=== PATIENT | male | born 1985 | race Caucasian/White ===

== ENCOUNTER 2016-05-08 09:18 | Emergency (ER) | payer MEDICAID ==
[2016-05-08 09:30] VITALS: RESP 18
--- NOTE | 2016-05-08 09:31 | EDPHY ---
H & P Time Seen by Provider: 05/08/16 09:20 HPI/ROS: CHIEF COMPLAINT: Left rib pain HISTORY OF PRESENT ILLNESS: 30-year-old male presents to the emergency department by ambulance after he was skateboarding approximately 1 hour prior to arrival and fell landing on his left side. He complains of isolated pain to the left upper rib. Denies hitting his head or losing consciousness. Denies neck or back pain. He has pain with taking a big deep breath however he does not feel short of breath. He denies any abdominal pain. No vomiting. No pain in upper or lower extremities. Denies headache. REVIEW OF SYSTEMS: Constitutional: No fever, no chills. Eyes: No double or blurry vision. ENT: No sore throat. Respiratory: No cough, no shortness of breath. Cardiac: No chest pain. Gastrointestinal: No abdominal pain, vomiting or diarrhea. Genitourinary: No dysuria. Musculoskeletal: No neck or back pain. Skin: No rashes. Neurological: No headache. Past Medical/Surgical History: Negative Social History: Single Smoking Status: Current every day smoker Physical Exam: General Appearance: Alert, no distress. No visible signs of trauma to his head. He is mentating normally and answering questions appropriately. Eyes: Pupils equal and round. Extraocular motions are all intact. ENT: Mouth: Mucous membranes moist. No dental injury or malocclusion. Respiratory: No wheezing, rhonchi, or rales, lungs are clear to auscultation. Reproducible pain with palpation left anterior lateral chest wall in the midaxillary line. No palpable crepitus or other bony abnormality. No abrasion or puncture wound noted. Cardiovascular: Regular rate and rhythm. Gastrointestinal: Abdomen is soft and nontender, no masses, no rebound or guarding, bowel sounds normal. Specifically no tenderness with palpation in the left upper quadrant. No CVA tenderness bilaterally. Neurological: Alert and oriented x 3, cranial nerves II through XII grossly intact Skin: Warm and dry, no rashes. Musculoskeletal: Nontender to palpate along the cervical, thoracic or lumbar spine. Neck is supple. Extremities: Full range of motion and no peripheral edema. Psychiatric: Patient is oriented X 3, there is no agitation. Constitutional: Initial Vital Signs Temperature (C) 36.7 C 05/08/16 09:28 Heart Rate 102 H 05/08/16 09:28 Respiratory Rate 18 05/08/16 09:28 Blood Pressure 139/96 H 05/08/16 09:28 O2 Sat (%) 97 05/08/16 09:28 O2 Delivery Mode Room Air Allergies/Adverse Reactions: No Known Allergies Allergy (Unverified 06/13/15 11:54) Home Medications: Medication Instructions Recorded oxyCODONE/APAP 5/325 [Percocet 1 - 2 tab PO Q4-6PRN PRN #11 tab 05/08/16 5/325] Medical Decision Making - Diagnostics Imaging: Chest x-ray reveals no obvious rib fracture. Specifically no evidence of pneumothorax. The radiologist was questioning age indeterminate T12 compression fracture, however the patient has no pain with palpation along cervical, thoracic, or lumbar spine. This was reviewed by myself the PAC system as well as with radiologist, Dr. Ihsan Dyer. ED Course/Re-evaluation: 30-year-old male presents with left rib pain after fall off skateboard. Chest x -ray is unremarkable. No evidence of pneumothorax or obvious rib fracture. Patient was encouraged to take deep breaths. He was encouraged to return to the emergency department immediately if he felt short of breath or developed chest pain. He was given a prescription for Percocet for severe pain mostly to help him sleep. The radiologist was questioning possible T12 compression fracture of age indeterminate, however the patient has no pain with palpation along cervical, thoracic or lumbar spine. I do not think further imaging is necessary of the thoracic spine. Differential Diagnosis: Including but not limited to rib fracture, chest wall contusion, pneumothorax, intra-abdominal injury Departure - Departure Disposition: Home, Routine, Self-Care Clinical Impression: Chest wall contusion Qualifiers: Encounter type: initial encounter Laterality: left Qualifier Code: (S20.212A) Contusion of left front wall of thorax, initial encounter Condition: Good Instructions: Chest Wall Pain (ED), Contusion in Adults (ED) Additional Instructions: Deep breaths. Ibuprofen 600mg every 8 hours for pain as directed. Percocet for severe pain as directed. Return if you feel short of breath, if you develop pain in your chest, or if you feel worse in any way. Referrals: Jose Raul Nunez MD [Medical Doctor] - 2-3 days, if not improved (Primary care provider communications engineering technician) Prescriptions: oxyCODONE/APAP 5/325 [Percocet ] 1 - 2 tab PO Q4-6PRN PRN #11 tab PRN Reason: For Moderate To Severe Pain
--- NOTE | 2016-05-08 09:58 | DX ---
Chest, PA and Lateral History: Trauma. Left rib pain after fall from skateboard. Findings: No pneumothorax, pleural effusion, pulmonary contusion, mediastinal widening, or obvious ri b fracture is identified. The costovertebral alignment is symmetric and anatomic. On the lateral view there is a mild compression deformity of T11 that is of unknown age. There is no obvious paraspinal stripe widening. Impression: 1. No left rib fracture identified. 2. Minor T11 compression of unknown age. Correlation with the site of symptoms is suggested. If there are any old outside x-rays, we would be happy to review them to assess for interval change. Results called to Gladys Rivera at 10am. .
[2016-05-08 10:28] VITALS: BP 133/93; PULSE 76; TEMP 98.6; O2SAT 93
== END 2016-05-08 10:28 | disposition home or self-care (01) ==
LOC: EDUNIT#
DX: S20.212A Contusion of left front wall of thorax, initial encounter (principal); F17.200 Nicotine dependence, unspecified, uncomplicated; V00.131A Fall from skateboard, initial encounter; Y99.8 Other external cause status; Y93.51 Activity, roller skating (inline) and skateboarding

== ENCOUNTER 2017-06-07 10:12 | Emergency (ER) | payer MEDICAID ==
[2017-06-07] MEDS ORDERED: PERMETHRIN 5% 60 GM CREAM TP ONE (12:23)
--- NOTE | 2017-06-07 12:25 | EDPHY ---
H & P Smoking Status: Current every day smoker Time Seen by Provider: 06/07/17 11:36 HPI/ROS: CHIEF COMPLAINT: "fleas" HISTORY OF PRESENT ILLNESS: 31-year-old homeless male presents to the emergency department for medical clearance for usp. He is complaining of "fleas"all over his body. He states that has been going on for quite some time. He has tried observed as extremely itchy. He denies pain. Denies fevers or chills. No treatment. ROS: Denies pain, fever, chills, chest pain, difficulty breathing, URI symptoms. (Gladys Gould) Past Medical/Surgical History: Asthma, polysubstance abuse, right testicle removed (Gladys Gould) Social History: Homeless (Gladys Gould) Physical Exam: The patient is in no apparent distress. He has dreadlocks and a full ortiz. No obvious nits or eggs in his hair or ortiz but although this is difficult to tell. The patient has diffuse excoriated ruvalcaba on his chest, abdomen and back especially. There is no signs of infection. No evidence of retained foreign bodies. Patient is in no respiratory distress. Excoriated ruvalcaba are not noted to his face. (Gladys Gould) Constitutional: Initial Vital Signs Temperature (C) 36 C 06/07/17 10:15 Heart Rate 82 06/07/17 10:15 Respiratory Rate 16 06/07/17 10:15 Blood Pressure 142/78 H 06/07/17 10:15 O2 Sat (%) 94 06/07/17 10:15 O2 Delivery Mode Room Air Allergies/Adverse Reactions: No Known Allergies Allergy (Unverified 06/13/15 11:54) Home Medications: Medication Instructions Recorded NK [No Known Home Meds] 06/07/17 MDM/Departure - MDM Medications Given: Discontinued Medications Permethrin (Elimite 5%) 1 vincent TP EDNOW ONE Stop: 06/07/17 12:24 Last Admin: 06/07/17 13:20 Dose: 1 tub ED Course/Re-evaluation: 31-year-old male presents with very pruritic rash. He will be treated for possible scabies. He was given permethrin cream to apply head to toe and wash off an 8-14 hr. The patient was encouraged to shave his hair and ortiz off as this may prevent recontamination. Patient refused. He was discharged with medication and has been medically cleared for usp. ( Gladys Gould) I did not see this patient while he was in the emergency department. However his care was discussed with the PA while the patient was in the department. Agree with treatment plan and management (Ean Moran) - Depart Disposition: Home, Routine, Self-Care Clinical Impression: Scabies Condition: Good Instructions: Scabies (ED) Additional Instructions: Permethrin cream apply head to toe and wash off after 8-14 hours. You may repeat this in 1 week. I have strongly encourage you to cut your hair and your ortiz as this can help to minimize recontamination. Referrals: [facility],. [Clinic] - As per Instructions
[2017-06-07 14:45] VITALS: BP 136/78; PULSE 87; RESP 18; TEMP 99.3; O2SAT 97
== END 2017-06-07 14:45 | disposition home or self-care (01) ==
LOC: EEVIPCON 10:12
DX: B86 Scabies (principal); J45.909 Unspecified asthma, uncomplicated; F17.200 Nicotine dependence, unspecified, uncomplicated